=== PATIENT | male | born 1965 | race Caucasian/White ===

== ENCOUNTER 2018-05-09 20:06 | Inpatient (IN) | payer OTHER ==
[~2018-05-09] VITALS: Ht 188 cm; Wt 97.4 kg
[~2018-05-09 20:06] MED LIST: ASPI-650 PO; ATOR40TA78 PO; METO25TA91 PO
[2018-05-09] MEDS ORDERED: SODIUM CHLORIDE FLUSH 10ML SYR IVF ONE (21:00)
[2018-05-09 21:10] LABS: BASOPHILS % (AUTO) 0 % (0-1); EOSINOPHILS # (AUTO) 0.01 x10^3/uL (0-0.4); EOSINOPHILS % (AUTO) 0 % (1-7); LYMPHOCYTES # (AUTO) 0.74 x10^3/uL (1-3.4); LYMPHOCYTES % (AUTO) 8 % (22-44); MD NO; MEAN CORPUSCULAR HEMOGLOBIN 29.6 pg (27.5-34.5); MEAN CORPUSCULAR HGB CONC 33.4 g/dL (33.2-36.2); MEAN CORPUSCULAR VOLUME 88.4 fL (81-97); MEAN PLATELET VOLUME 8.7 fL (7.4-10.4); MONOCYTES # (AUTO) 0.93 x10^3/uL (0.2-0.8); MONOCYTES % (AUTO) 10 % (2-9); NEUTROPHILS # (AUTO) 7.38 x10^3/uL (1.8-6.8); NEUTROPHILS % (AUTO) 82 % (42-75); PLATELET COUNT 149 x10^3/uL (130-400); RED BLOOD COUNT 5.82 x10^6/uL (4.38-5.82)
[2018-05-09 21:21] LABS: INTERNATIONAL NORMALIZED RATIO 1.09 (0.93-1.1); PROTHROMBIN TIME 11.2 Seconds (9.6-11.5)
[2018-05-09 21:23] LABS: ALANINE AMINOTRANSFERASE 59 U/L (12-78); ALBUMIN 4.2 g/dL (3.4-5.0); ANION GAP 11 mmol/L (5-15); CALCIUM 9.4 mg/dL (8.5-10.1); CHLORIDE 112 mmol/L (98-107); CREATININE 1.55 mg/dL (0.7-1.3)
[2018-05-09 21:40] LABS: ALKALINE PHOSPHATASE 57 U/L (45-117); BILIRUBIN,TOTAL 1.8 mg/dL (0.2-1.0); CREATINE KINASE, TOTAL 6085 U/L (39-308); TOTAL PROTEIN 8.4 g/dL (6.4-8.2)
[2018-05-09] MEDS ORDERED: SODIUM CHLORIDE 0.9% 1,000ML IVBOLUS ONE (22:00)
[2018-05-09] MEDS ORDERED: OMNIPAQUE 350 MG/ML, 100ML BOTTLE ONE (22:30)
[2018-05-09] MEDS ORDERED: SODIUM CHLORIDE FLUSH 10ML SYR IVF PRN (22:30)
[2018-05-09] MEDS ORDERED: morphine SULFATE 10 MG/ML, 1ML IVPush PRN (23:00)
[2018-05-09] MEDS ORDERED: ENALAPRILAT 1.25 MG/ML, 2ML IV PRN (23:00)
[2018-05-09] MEDS ORDERED: ONDANSETRON 2MG/ML, 2ML IVPush PRN (23:00)
[2018-05-09] MEDS ORDERED: INSTRUCTION SEE COMMENTS XX ONE (23:00)
[2018-05-09] MEDS: SODIUM CHLORIDE 0.9% 1,000 ML IV SCH (23:42)
[2018-05-10 04:00] VITALS: BP 126/80
[2018-05-10 05:02] LABS: CHOL/HDL RATIO 3.8; LDL/HDL RATIO 2.4 (0.5-3.0)
[2018-05-10] MEDS: SODIUM CHLORIDE 0.9% 1,000 ML IV SCH ×2 (06:47→19:28)
[2018-05-10 07:54] LABS: ALANINE AMINOTRANSFERASE 65 U/L (12-78); ALBUMIN 3.5 g/dL (3.4-5.0); ANION GAP 8 mmol/L (5-15); CALCIUM 8.4 mg/dL (8.5-10.1); CHLORIDE 116 mmol/L (98-107); CREATININE 0.91 mg/dL (0.7-1.3)
[2018-05-10 08:07] LABS: ALKALINE PHOSPHATASE 51 U/L (45-117); BILIRUBIN,TOTAL 1.8 mg/dL (0.2-1.0); CREATINE KINASE, TOTAL 6499 U/L (39-308); TOTAL PROTEIN 7.3 g/dL (6.4-8.2)
[2018-05-10] MEDS: MVI ADULT 10 ML, THIAMINE 200 MG, FOLIC ACID 1 MG in SODIUM CHLORIDE 0.45% 1,000 ML IV SCH (08:15)
[2018-05-10 08:18] LABS: BASOPHILS # (AUTO) 0.02 x10^3/uL (0-0.1); BASOPHILS % (AUTO) 0 % (0-1); EOSINOPHILS # (AUTO) 0.03 x10^3/uL (0-0.4); EOSINOPHILS % (AUTO) 0 % (1-7); LYMPHOCYTES # (AUTO) 0.88 x10^3/uL (1-3.4); LYMPHOCYTES % (AUTO) 11 % (22-44); MD NO; MEAN CORPUSCULAR HEMOGLOBIN 29.2 pg (27.5-34.5); MEAN CORPUSCULAR HGB CONC 33.2 g/dL (33.2-36.2); MEAN CORPUSCULAR VOLUME 87.8 fL (81-97); MEAN PLATELET VOLUME 8.8 fL (7.4-10.4); MONOCYTES # (AUTO) 0.77 x10^3/uL (0.2-0.8); MONOCYTES % (AUTO) 10 % (2-9); NEUTROPHILS # (AUTO) 6.23 x10^3/uL (1.8-6.8); NEUTROPHILS % (AUTO) 79 % (42-75); PLATELET COUNT 140 x10^3/uL (130-400); RED BLOOD COUNT 5.43 x10^6/uL (4.38-5.82); RED CELL DISTRIBUTION WIDTH 13.2 % (9.4-14.8)
[2018-05-10] MEDS ORDERED: OMNIPAQUE 300 MG/ML, 10ML VIAL ONE (10:15)
[2018-05-10] MEDS ORDERED: TAMSULOSIN 0.4 MG CAP.ER.24H PO ONE (11:00)
[2018-05-10] MEDS: FAMOTIDINE 20 MG/2 ML IVPush SCH ×2 (11:11→22:12)
[2018-05-10 14:22] LABS: AMPHETAMINE SCREEN, URINE Negative (Negative); BARBITURATE SCREEN, URINE Negative (Negative); BENZODIAZEPINE SCREEN, URINE Negative (Negative); CANNABINOID SCREEN, URINE Negative (Negative); COCAINE SCREEN, URINE Negative (Negative); METHADONE SCREEN, URINE Negative (Negative); OPIATE SCREEN, URINE Negative (Negative)
[2018-05-11 04:00] VITALS: BP 119/78
[2018-05-11] MEDS: SODIUM CHLORIDE 0.9% 1,000 ML IV SCH ×2 (04:25→23:20)
[2018-05-11 05:12] LABS: BASOPHILS # (AUTO) 0.03 x10^3/uL (0-0.1); BASOPHILS % (AUTO) 1 % (0-1); EOSINOPHILS # (AUTO) 0.15 x10^3/uL (0-0.4); EOSINOPHILS % (AUTO) 2 % (1-7); LYMPHOCYTES # (AUTO) 1.02 x10^3/uL (1-3.4); LYMPHOCYTES % (AUTO) 15 % (22-44); MD NO; MEAN CORPUSCULAR HEMOGLOBIN 29.6 pg (27.5-34.5); MEAN CORPUSCULAR HGB CONC 33.3 g/dL (33.2-36.2); MEAN CORPUSCULAR VOLUME 88.9 fL (81-97); MEAN PLATELET VOLUME 9.1 fL (7.4-10.4); MONOCYTES # (AUTO) 0.75 x10^3/uL (0.2-0.8); MONOCYTES % (AUTO) 11 % (2-9); NEUTROPHILS # (AUTO) 4.96 x10^3/uL (1.8-6.8); NEUTROPHILS % (AUTO) 72 % (42-75); PLATELET COUNT 113 x10^3/uL (130-400); RED BLOOD COUNT 5.21 x10^6/uL (4.38-5.82); RED CELL DISTRIBUTION WIDTH 13.2 % (9.4-14.8)
[2018-05-11 05:19] LABS: ALANINE AMINOTRANSFERASE 61 U/L (12-78); ANION GAP 8 mmol/L (5-15); CALCIUM 8.3 mg/dL (8.5-10.1); CHLORIDE 112 mmol/L (98-107)
[2018-05-11 05:36] LABS: ALKALINE PHOSPHATASE 51 U/L (45-117); BILIRUBIN,TOTAL 1.5 mg/dL (0.2-1.0); CREATINE KINASE, TOTAL 3473 U/L (39-308); TOTAL PROTEIN 6.5 g/dL (6.4-8.2)
[2018-05-11] MEDS: FAMOTIDINE 20 MG/2 ML IVPush SCH ×2 (07:37→21:15)
[2018-05-11] MEDS: MVI ADULT 10 ML, THIAMINE 200 MG, FOLIC ACID 1 MG in SODIUM CHLORIDE 0.45% 1,000 ML IV SCH (14:00)
[2018-05-11 22:13] VITALS: BP 121/83
[2018-05-12 05:01] VITALS: BP 116/68
[2018-05-12] MEDS: SODIUM CHLORIDE 0.9% 1,000 ML IV SCH ×3 (05:03→20:11)
[2018-05-12 06:03] LABS: CHLORIDE 113 mmol/L (98-107)
[2018-05-12 06:09] LABS: MEAN CORPUSCULAR HEMOGLOBIN 29.5 pg (27.5-34.5); MEAN CORPUSCULAR HGB CONC 33.6 g/dL (33.2-36.2); MEAN CORPUSCULAR VOLUME 87.8 fL (81-97); RED BLOOD COUNT 4.87 x10^6/uL (4.38-5.82); RED CELL DISTRIBUTION WIDTH 13.1 % (9.4-14.8)
[2018-05-12 06:23] LABS: ALANINE AMINOTRANSFERASE 51 U/L (12-78); ALBUMIN 2.7 g/dL (3.4-5.0); ALKALINE PHOSPHATASE 53 U/L (45-117); ANION GAP 7 mmol/L (5-15); BILIRUBIN,TOTAL 1.5 mg/dL (0.2-1.0); CREATINE KINASE, TOTAL 1674 U/L (39-308); CREATININE 0.65 mg/dL (0.7-1.3); TOTAL PROTEIN 6.1 g/dL (6.4-8.2)
[2018-05-12 06:59] VITALS: BP 115/73
[2018-05-12 07:21] LABS: BASOPHILS # (AUTO) 0.04 x10^3/uL (0-0.1); BASOPHILS % (AUTO) 1 % (0-1); EOSINOPHILS # (AUTO) 0.21 x10^3/uL (0-0.4); EOSINOPHILS % (AUTO) 4 % (1-7); LYMPHOCYTES # (AUTO) 0.94 x10^3/uL (1-3.4); LYMPHOCYTES % (AUTO) 18 % (22-44); MD SCAN; MEAN PLATELET VOLUME 9.2 fL (7.4-10.4); MONOCYTES # (AUTO) 0.54 x10^3/uL (0.2-0.8); MONOCYTES % (AUTO) 10 % (2-9); NEUTROPHILS % (AUTO) 68 % (42-75); PLATELET COUNT 84 x10^3/uL (130-400)
[2018-05-12] MEDS: FAMOTIDINE 20 MG/2 ML IVPush SCH ×2 (08:52→20:12)
[2018-05-12] MEDS: MVI ADULT 10 ML, THIAMINE 200 MG, FOLIC ACID 1 MG in SODIUM CHLORIDE 0.45% 1,000 ML IV SCH (13:51)
[2018-05-12 15:14] VITALS: BP 130/89
[2018-05-12 20:00] VITALS: BP 136/73
[2018-05-13 00:54] VITALS: BP 115/71
[2018-05-13] MEDS: SODIUM CHLORIDE 0.9% 1,000 ML IV SCH ×3 (03:28→21:59)
[2018-05-13 06:45] VITALS: BP 127/76
[2018-05-13] MEDS: FAMOTIDINE 20 MG/2 ML IVPush SCH ×2 (08:59→21:59)
[2018-05-13 14:15] VITALS: BP 122/76
[2018-05-13] MEDS: MVI ADULT 10 ML, THIAMINE 200 MG, FOLIC ACID 1 MG in SODIUM CHLORIDE 0.45% 1,000 ML IV SCH (14:44)
[2018-05-13 20:00] VITALS: BP 121/67
[2018-05-14 02:00] VITALS: BP 115/65
[2018-05-14 07:06] VITALS: BP 120/76
[2018-05-14] MEDS: POLYETHYLENE GLYCOL 17 GM PACKET PO SCH (09:00)
[2018-05-14] MEDS: FOLIC ACID 1 MG TABLET PO SCH (09:02)
[2018-05-14] MEDS: MAGNESIUM OXIDE 400 MG TABLET PO SCH ×2 (09:02→21:17)
[2018-05-14] MEDS: THIAMINE 100MG TABLET PO SCH (09:02)
[2018-05-14] MEDS: FAMOTIDINE 20 MG TABLET PO SCH ×2 (09:03→21:17)
[2018-05-14] MEDS: MULTIVITAMIN 1 TABLET PO SCH (09:03)
[2018-05-14 13:53] VITALS: BP 123/79
[2018-05-14 20:33] VITALS: BP 125/75
[2018-05-15 02:12] VITALS: BP 108/71
[2018-05-15 05:52] LABS: BASOPHILS # (AUTO) 0.02 x10^3/uL (0-0.1); BASOPHILS % (AUTO) 0 % (0-1); EOSINOPHILS % (AUTO) 2 % (1-7); LYMPHOCYTES # (AUTO) 0.73 x10^3/uL (1-3.4); LYMPHOCYTES % (AUTO) 16 % (22-44); MD NO; MEAN CORPUSCULAR HEMOGLOBIN 29.5 pg (27.5-34.5); MEAN CORPUSCULAR HGB CONC 33.7 g/dL (33.2-36.2); MEAN CORPUSCULAR VOLUME 87.3 fL (81-97); MEAN PLATELET VOLUME 9.1 fL (7.4-10.4); MONOCYTES # (AUTO) 0.62 x10^3/uL (0.2-0.8); MONOCYTES % (AUTO) 14 % (2-9); NEUTROPHILS # (AUTO) 3.08 x10^3/uL (1.8-6.8); NEUTROPHILS % (AUTO) 68 % (42-75); PLATELET COUNT 111 x10^3/uL (130-400); RED BLOOD COUNT 5.04 x10^6/uL (4.38-5.82); RED CELL DISTRIBUTION WIDTH 12.7 % (9.4-14.8)
[2018-05-15 06:03] LABS: CHLORIDE 106 mmol/L (98-107)
[2018-05-15 06:08] LABS: ALANINE AMINOTRANSFERASE 45 U/L (12-78); ALBUMIN 2.8 g/dL (3.4-5.0); ALKALINE PHOSPHATASE 82 U/L (45-117); ANION GAP 6 mmol/L (5-15); BILIRUBIN,TOTAL 1.1 mg/dL (0.2-1.0); CALCIUM 8.3 mg/dL (8.5-10.1); CREATININE 0.71 mg/dL (0.7-1.3); TOTAL PROTEIN 6.3 g/dL (6.4-8.2)
[2018-05-15 07:32] VITALS: BP 119/79
[2018-05-15] MEDS: THIAMINE 100MG TABLET PO SCH (08:34)
[2018-05-15] MEDS: FAMOTIDINE 20 MG TABLET PO SCH ×2 (08:34→20:49)
[2018-05-15] MEDS: MULTIVITAMIN 1 TABLET PO SCH (08:34)
[2018-05-15] MEDS: FOLIC ACID 1 MG TABLET PO SCH (08:34)
[2018-05-15] MEDS: MAGNESIUM OXIDE 400 MG TABLET PO SCH ×2 (08:34→20:49)
[2018-05-15] MEDS: POLYETHYLENE GLYCOL 17 GM PACKET PO SCH (08:35)
[2018-05-15 14:42] VITALS: BP 103/69
[2018-05-15 20:59] VITALS: BP 117/77
[2018-05-16 00:57] VITALS: BP 113/74
[2018-05-16] MEDS: THIAMINE 100MG TABLET PO SCH ×2 (08:18→08:26)
[2018-05-16] MEDS: POLYETHYLENE GLYCOL 17 GM PACKET PO SCH (08:18)
[2018-05-16] MEDS: FOLIC ACID 1 MG TABLET PO SCH (08:18)
[2018-05-16] MEDS: MULTIVITAMIN 1 TABLET PO SCH (08:18)
[2018-05-16] MEDS: FAMOTIDINE 20 MG TABLET PO SCH ×2 (08:18→22:39)
[2018-05-16] MEDS: MAGNESIUM OXIDE 400 MG TABLET PO SCH ×2 (08:18→22:39)
[2018-05-16 08:25] VITALS: BP 108/73
[2018-05-16 13:44] VITALS: BP 112/78
[2018-05-16 20:25] VITALS: BP 109/70
[2018-05-17 00:55] VITALS: BP 112/69
[2018-05-17 07:04] VITALS: BP 116/73
[2018-05-17] MEDS: POLYETHYLENE GLYCOL 17 GM PACKET PO SCH (09:57)
[2018-05-17] MEDS: FAMOTIDINE 20 MG TABLET PO SCH (09:58)
[2018-05-17] MEDS: MULTIVITAMIN 1 TABLET PO SCH (09:58)
[2018-05-17] MEDS: MAGNESIUM OXIDE 400 MG TABLET PO SCH (09:58)
[2018-05-17] MEDS: FOLIC ACID 1 MG TABLET PO SCH (09:58)
[2018-05-17] MEDS: THIAMINE 100MG TABLET PO SCH (09:58)
[2018-05-17] MEDS ORDERED: THIA100T67 PO (12:14)
[2018-05-17] MEDS ORDERED: MULT1TAB60 PO (12:14)
[2018-05-17] MEDS ORDERED: FOLI-17 PO (12:14)
[2018-05-17] MEDS ORDERED: MAGN400T26 PO (12:14)
[2018-05-17] MEDS ORDERED: FAMO20TA7 PO (12:14)
[2018-05-17] MEDS ORDERED: ATOR40TA78 PO (12:18)
[2018-05-17 14:03] VITALS: BP 120/78
[2018-05-17] MEDS ORDERED: LACTULOSE 3.3 GM/5 ML ORAL.SOL RC ONE (16:00)
[2018-05-17] MEDS ORDERED: ATORVASTATIN 40 MG TABLET PO SCH (21:00)
== END 2018-05-17 18:25 | DRG 64 ==
LOC: ED 21:53 → EDIP 22:17 → CCU 05-10 01:29 → 4EST 05-11 23:21
PROVIDERS: ADMIT Family Medicine; ATTEND Family Medicine
DX: I61.0 Nontraumatic intracerebral hemorrhage in hemisphere, subcortical (principal); N17.0 Acute kidney failure with tubular necrosis; G81.94 Hemiplegia, unspecified affecting left nondominant side; M62.82 Rhabdomyolysis; R29.810 Facial weakness; K70.10 Alcoholic hepatitis without ascites; I72.0 Aneurysm of carotid artery; I67.1 Cerebral aneurysm, nonruptured; F10.10 Alcohol abuse, uncomplicated; E86.0 Dehydration; L89.90 Pressure ulcer of unspecified site, unspecified stage; Z86.73 Personal history of transient ischemic attack (TIA), and cerebral infarction without residual deficits; Z87.891 Personal history of nicotine dependence; Z79.899 Other long term (current) drug therapy; Z79.82 Long term (current) use of aspirin
CPT/HCPCS: 36415; 73030; 73502; 74230; 99291; S0028; 70450; 70496; 70498; 71045; 80053; 80061; 80307; 82550; 82962; 83735; 84100; 85025; 85610; 85730; 87081; 93005; 96360; J3411; Q9967; 92523-GN; J2270; J7030